=== PATIENT | female | born 1945 | race Two or more races ===

== ENCOUNTER 2017-12-13 06:56 | Outpatient (CLI) | payer OTHER | END 2017-12-13 08:00 | disposition home or self-care (01) | LOC: NUCLEAR 06:56 → EDBD 06:56 → NUCLEAR 07:00 | DX: I20.0 Unstable angina (principal); R94.30 Abnormal result of cardiovascular function study, unspecified | CPT/HCPCS: 78452; 93017; A9500 ==

== ENCOUNTER 2023-01-07 10:16 | Outpatient (CLI) | payer OTHER | END 2023-01-07 10:22 | disposition home or self-care (01) | LOC: TOM 10:16 | DX: K62.5 Hemorrhage of anus and rectum (principal); K63.5 Polyp of colon; K57.31 Diverticulosis of large intestine without perforation or abscess with bleeding; Z12.11 Encounter for screening for malignant neoplasm of colon ==

== ENCOUNTER 2024-09-18 09:00 | Outpatient (CLI) | payer OTHER | END 2024-09-18 09:04 | disposition home or self-care (01) | LOC: TOM 09:00 | DX: R10.13 Epigastric pain (principal); R14.0 Abdominal distension (gaseous) | CPT/HCPCS: 74178; Q9965 ==